=== PATIENT | female | born 1985 | race Caucasian/White ===

== ENCOUNTER 2023-11-01 21:35 | Emergency (ER) | payer OTHER ==
[2023-11-01] MEDS ORDERED: Ketorolac 30 MG/ML SDV IM ONE (23:02)
[2023-11-02] MEDS ORDERED: Cyclobenzaprine 10 MG Tab PO ONE (00:46)
[2023-11-02] MEDS ORDERED: Orphenadrine 100 MG Tab.ER PO ONE (23:02)
== END 2023-11-02 01:00 | disposition home or self-care (01) ==
LOC: JD.ED 21:35
DX: M54.2 Cervicalgia (principal); M54.6 Pain in thoracic spine; V49.50XA Passenger injured in collision with unspecified motor vehicles in traffic accident, initial encounter
CPT/HCPCS: 72125; 72128; 96372; 99283; A9270; J1885